=== PATIENT | male | born 1945 | race Caucasian/White ===

== ENCOUNTER → 2024-09-20 13:35 | Outpatient (REF) | payer MEDICARE, OTHER, SELFPAY | LOC: RCS 13:35 | PROVIDERS: ATTENDING PHYSICIAN Student in an Organized Health Care Education/Training Program; FAMILY PHYSICIAN Physician Assistant | DX: Z95.2 Presence of prosthetic heart valve (principal); R06.09 Other forms of dyspnea | CPT/HCPCS: 93306 ==